=== PATIENT | female | born 1985 | race Caucasian/White ===

== ENCOUNTER 2016-11-14 22:03 | Inpatient (IN) | payer MEDICAID ==
[2016-11-14] MEDS ORDERED: LR 1,000 ML IV PRN (22:07)
[2016-11-14] MEDS ORDERED: TERBUTALINE SULFATE 1 MG/ML VIAL IV PRN (22:07)
[2016-11-14] MEDS ORDERED: BUPIVACAINE 0.25% 30 ML SDV MISC ONE (22:07)
[2016-11-14] MEDS ORDERED: OXYTOCIN/RINGERS LACTATE 1,000 ML IV PRN (22:07)
[2016-11-14] MEDS ORDERED: fentaNYL 2MCG/ML/BUP 0.1% RTU 100 ML EP ONE (22:07)
[2016-11-14] MEDS ORDERED: LIDOCAINE 1% 30 ML SDV SC PRN (22:07)
[2016-11-14] MEDS ORDERED: IBUPROFEN 600 MG TAB PO PRN (22:07)
[2016-11-14] MEDS ORDERED: fentaNYL 100 MCG/2 ML INJ MISC ONE (22:07)
[2016-11-14] MEDS ORDERED: MINERAL OIL 60 ML OIL TP PRN (22:07)
[2016-11-14 22:22] LABS: % IMMATURE GRANULYOCYTES 1.3 % (0.0-1.1); ABSOLUTE IMMATURE GRANULOCYTES 0.19 10^3/uL (0.00-0.10); ADD DIFF? NO; ADD MORPH? NO; ADD SCAN? NO; ATYPICAL LYMPHOCYTE FLAG 0 (0-99); FRAGMENT RBC FLAG 0 (0-99); HEMOGLOBIN 15.4 g/dL (12.6-16.3); LEFT SHIFT FLG 10 (0-99); LIPEMIA HEMOLYSIS FLAG 90 (0-99); MEAN CELL HEMOGLOBIN 33.2 pg (27.9-34.1); MEAN CELL HEMOGLOBIN CONCENTR. 35.8 g/dL (32.4-36.7); MEAN CELL VOLUME 92.7 fL (81.5-99.8); MEAN PLATELET VOLUME 8.8 fL (8.7-11.7); PLATELET CLUMPS FLAG 0 (0-99); PLATELET COUNT 209 10^3/uL (150-400); RED BLOOD CELL COUNT 4.64 10^6/uL (4.18-5.33); RED CELL DISTRIBUTION WIDTH 12.6 % (11.5-15.2)
[2016-11-14] MEDS ORDERED: BUPIVACAINE 0.25% 30 ML SDV ONE (22:28)
[2016-11-14] MEDS ORDERED: fentaNYL 2MCG/ML/BUP 0.1% RTU 100 ML BAG EP ONE (22:28)
[2016-11-14] MEDS ORDERED: PHENYLEPHRINE HCL 100 MCG/ML SYR ONE (22:29)
[2016-11-14] MEDS ORDERED: ONDANSETRON 4 MG/2 ML VIAL IVP PRN (23:04)
[2016-11-14] MEDS ORDERED: NALOXONE HCL 0.4 MG/ML INJ IVP PRN (23:04)
[2016-11-14] MEDS ORDERED: PHENYLEPHRINE HCL 100 MCG/ML SYR IVP PRN (23:04)
[2016-11-14] MEDS ORDERED: LR 500 ML IV SCH (23:30)
[2016-11-14] MEDS ORDERED: fentaNYL 2MCG/ML/BUP 0.1% RTU 100 ML EP SCH (23:30)
[2016-11-14] MEDS ORDERED: HYDROCORTISONE 0.5% CREAM TP PRN (23:35)
[2016-11-14] MEDS ORDERED: HYDROCODONE/APAP 5/325 TAB PO PRN (23:35)
[2016-11-14] MEDS ORDERED: ACETAMINOPHEN 325 MG TAB PO PRN (23:35)
--- NOTE | 2016-11-14 23:35 | OBPROC ---
- Labor and Delivery Onset of Contractions Date: 11/14/16 Onset of Contractions Time: 20:00 Onset of Contractions Type: Spontaneous Rupture of Membranes Date: 11/14/16 Rupture of Membranes Time: 22:00 Rupture of Membranes Type: Spontaneous Amniotic Fluid Color: Clear Dilation Complete Time: 22:55 Delivery Type: Spontaneous Placenta Delivery Date: 11/14/16 Placenta Delivery Time: 23:16 Episiotomy/Laceration: 2nd Degree Repair: 3-0 - Medications Labor Augmentation/Induction Meds Used: None Anesthesia: Epidural - [place] Info Infant A Delivery Date: 11/14/16 Delivery Time: 23:13 Sex of Infant: Female Score (1 Min): 8 Score (5 Min): 9
--- NOTE | 2016-11-15 00:29 | GHP ---
[f rep st] HISTORY AND PHYSICAL DATE OF ADMISSION: 11/14/2016 ADMISSION DIAGNOSES: 1. Intrauterine at 40-6/7 weeks' gestation. 2. Active labor. 3. Spontaneous rupture of membranes. The patient is a 31-year-old 4, para 1-0-2-1, who is 40-6/7 weeks' gestation who was seen in the office yesterday and was 3 cm dilated. Her membranes were stripped. She began having contractio ns, increasing in frequency and intensity, on the afternoon of 11/14/2016 and presented to labor and delivery. She was 6 cm dilated, and her water spontaneously broke upon arrival to labor and delivery . Patient has been receiving care. Patient's estimated due date is 11/09/2016 with a last menstrual period of 02/02/2016. She is dated by last menstrual period, consistent with an 8-week ult rasound, and she has received care with [facility]. The patient's has b een uncomplicated. PATIENT'S MEDICAL HISTORY: Unremarkable. MEDICATIONS: vitamins and DHEA. SURGICAL HISTORY: D and C. ALLERGIES: No known drug allergies. SOCIAL HISTORY: Patient is in a long-term relationship. She denies tobacco, alcohol, or drug use. FAMILY MEDICAL HISTORY: Noncontributory. 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 Periods every 28 days, lasting 4 days. She is a 4, par a 1-0-2-1. In 2003, she had a spontaneous and did not need a D and C. In 05/2013, she had a missed and had a D and C after failed Cytotec. In 2013, she had a vacuum-assisted vaginal delivery, done for intolerance of labor, at 40-6/7 weeks' gestation of a baby weighing 6 pound s 8 ounces. The patient denies any history of any other abnormal Pap smears or sexually transmitted diseases. PHYSICAL EXAM: VITAL SIGNS: Stable. GENERAL APPEARANCE: Alert and oriented x3. Her heart rate is regular/regular. LUNGS: Clear to auscultation bilaterally. ABDOMEN: Gravid, nondistended, nonten ryann. EXTREMITIES: No calf tenderness or edema. CERVICAL EXAM: She is 6 cm dilated, 100% effaced, and 0 station. Grossly ruptured. She is having regular contractions. heart tracings are lois gory 1. LABS: Blood type A positive, antibody screen negative, rubella immune. GBS negative. HBsA g negative. HIV negative. Her 50 g glucose was 104, and her verifi screen was negative. ASSESSMENT AND PLAN: 31-year-old, 4, para 1-0-2-1, at 40-6/7 weeks' gestation, who presented in active labor and spontaneously ruptured fluids upon my arrival to labor and delivery. The patien t was receiving an epidural now and will be managed expectantly. /[id number]/MODL
[2016-11-15] MEDS ORDERED: TERBUTALINE SULFATE 1 MG/ML VIAL IV ONE (02:00)
[2016-11-15] MEDS ORDERED: MINERAL OIL 60 ML OIL TP ONE (02:00)
[2016-11-15] MEDS ORDERED: OXYTOCIN 10 UNIT/ML VIAL IV ONE (02:00)
[2016-11-15] MEDS ORDERED: AMMONIA AROMATIC 1 EACH AMP IH ONE (02:00)
[2016-11-15] MEDS ORDERED: LIDOCAINE 1% 30 ML SDV SC ONE (02:00)
[2016-11-15] MEDS ORDERED: MISOPROSTOL 200 MCG TAB VG ONE (02:00)
[2016-11-15] MEDS: IBUPROFEN 600 MG TAB PO PRN ×4 (02:11→22:19)
[2016-11-15] MEDS: DOCUSATE SODIUM 100 MG CAP PO PRN ×2 (09:33→22:19)
--- NOTE | 2016-11-15 09:53 | SOAPPROG ---
SOAP Progress Note Assessment/Plan: Assessment: ppd# 1 s/p breast feeding Plan: routine post care 11/15/16 09:48 Subjective: patient is doing well. pain is well controlled. normal lochia. denies headache and change. ambulating. baby on bililight. no issues. Objective: Vital Signs Temp Pulse Resp BP Pulse Ox 36.4 C 76 16 100/53 L 94 11/15/16 08:30 11/15/16 08:30 11/15/16 08:30 11/15/16 08:30 11/15/16 08:30 Laboratory Results 11/14/16 22:10 Physical Exam - Physical Exam General Appearance: WD/WN, alert, no apparent distress Respiratory: chest non-tender, lungs clear, normal breath sounds Cardiac/Chest: normal peripheral pulses, regular rate, rhythm Abdomen: normal bowel sounds, non-tender, soft, other (fundus firm and non tender) Skin: normal color, warm/dry Extremities: normal range of motion, non-tender, normal inspection, normal capillary refill Neuro/Psych: no motor/sensory deficits, alert, normal mood/affect, oriented x 3 ICD10 Worksheet Patient Problems: Problems Problem Status Diagnosed (spontaneous vaginal delivery) Acute
[2016-11-15] MEDS ORDERED: EPSOM SALT 454 GM TP ONE (09:55)
[2016-11-16] MEDS: IBUPROFEN 600 MG TAB PO PRN (06:49)
[2016-11-16 08:54] VITALS: BP 103/66; PULSE 70; RESP 16; TEMP 97.9; O2SAT 93
[2016-11-16] MEDS: DOCUSATE SODIUM 100 MG CAP PO PRN (09:32)
--- NOTE | 2016-11-16 11:26 | SOAPPROG ---
SOAP Progress Note Assessment/Plan: Assessment: ppd# 2 s/p breast feeding Plan: routine post care discharge instructions and discharge patient mood precautions 11/16/16 11:24 Subjective: patient is doing well. pain is well controlled. normal lochia. denies headache and changes in vision. wants to go home. voiding without difficulty. Objective: Vital Signs Temp Pulse Resp BP Pulse Ox 36.6 C 70 16 103/66 93 11/16/16 08:15 11/16/16 08:15 11/16/16 08:15 11/16/16 08:15 11/16/16 08:15 Laboratory Results 11/14/16 22:10 Physical Exam - Physical Exam General Appearance: WD/WN, alert, no apparent distress Respiratory: chest non-tender, lungs clear, normal breath sounds Cardiac/Chest: normal peripheral pulses, regular rate, rhythm Abdomen: normal bowel sounds, non-tender, soft, other (fundus firm and non tender) Skin: normal color, warm/dry Extremities: normal range of motion, non-tender, normal inspection, normal capillary refill Neuro/Psych: no motor/sensory deficits, alert, normal mood/affect, oriented x 3 ICD10 Worksheet Patient Problems: Problems Problem Status Diagnosed (spontaneous vaginal delivery) Acute
== END 2016-11-16 12:30 | disposition home or self-care (01) | DRG 775 ==
LOC: FLD 22:03 → FOB 11-15 01:37
PROVIDERS: ADMIT Obstetrics & Gynecology; ATTEND Obstetrics & Gynecology
PROC: 0KQM0ZZ Repair Perineum Muscle, Open Approach (ICD-10-PCS; principal; 2016-11-14)
PROC: 10E0XZZ Delivery of Products of Conception, External Approach (ICD-10-PCS; principal; 2016-11-14)
DX: O70.1 Second degree perineal laceration during delivery (principal); Z37.0 Single live birth; Z3A.40 40 weeks gestation of pregnancy
CPT/HCPCS: J2370; J2590; J3010

== ENCOUNTER → 2017-03-25 | Outpatient (CLI) | payer MEDICAID | LOC: FIMAGING 16:03 | PROVIDERS: ATTEND Nurse Practitioner Women's Health | DX: Z97.5 Presence of (intrauterine) contraceptive device (principal) ==

== ENCOUNTER 2017-03-30 10:03 | Day surgery (SDC) | payer MEDICAID ==
--- NOTE | 2017-03-26 10:24 | GHP ---
[f rep st] HISTORY AND PHYSICAL DATE OF ADMISSION: 03/30/2017 ADMITTING DIAGNOSIS: Displaced IUD. HISTORY OF PRESENT ILLNESS: The patient is a 31-year-old, 4, para 2-0-2 -2, who presents to my office today for a surgical consult. She had Paragard IUD placed 01/29 and returned for IUD sting check yesterday. The IUD strings were not seen on exam. She had an ultrasound that showed IUD was not in the uterus and then had a KUB that demonstrated IUD in the pelvis, extrauterine position. Patient denies any cramping or vaginal bleeding. She is asymptomatic at this time. The patient is interested in the control pill. PAST OB HISTORY: In 2003, she had a spontaneous AB. In 2012, she had a missed AB, and required a D and C. In 2013, she had a a full-term, vacuum- assisted vaginal delivery, female weighing 6 pounds 8 ounces at 40 weeks and 6 days. In 2016, she had a full-term vaginal delivery, female weighing 7 pounds, 12 ounces, uncomplicated. 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 Cycles are every 28 days for 4 days. Patient is at this time. Last menstrual period was 02/02/2016. She is currently . Denies a history of abnormal Pap smears. Does have a history of high-risk HPV. Denies exposure to any other STDs. PAST MEDICAL HISTORY: Unremarkable. PAST SURGICAL HISTORY: D and C. MEDICATIONS: vitamins. ALLERGIES: No known drug allergies. SOCIAL HISTORY: Patient is with long-time partner, not . Lives with partner and their 2 daughters. Denies any alcohol, tobacco or illicit drug use. FAMILY HISTORY: Maternal great-grandmother, breast cancer. Paternal grandmother, colon cancer. STUDIES: Pelvic ultrasound revealed IUD not within the uterus. Flat plate KUB demonstrated the IUD in the upper third of pelvis; retroperitoneal fat planes are intact; no evidence to suggest free fluid. PHYSICAL EXAMINATION: VITAL SIGNS: On admission, vital signs are stable, afebrile. GENERAL: The patient is a well-nourished, well-developed female. Alert and oriented x3. No apparent distress. CARDIOVASCULAR: Regular rate and rhythm. LUNGS: Clear to auscultation bilaterally. Normal breath sounds. ABDOMEN: Soft, nondistended, nontender. PELVIC: On bimanual exam, normal adnexa and normal uterus. No IUD strings palpated. EXTREMITIES: Normal to inspection without calf tenderness or edema. ASSESSMENT: The patient is a 31-year-old, 4, para 2-0-2-2, with displaced IUD. PLAN: 1. Discussed proceeding with surgery to remove displaced IUD which could cause pain and is not effective control. She is interested in the pill for control. 2., Discussed surgery, diagnostic laparoscopy, its limitations, n.p.o., preop, and postop recovery. 2. Surgical consent was obtained. Risks, benefits and alternatives reviewed with the patient including but not limited to bleeding, infection, damage to surrounding organs. The patient does understand all risks at this time and wants to proceed with surgery. 3. Antibiotics manager regional to OR. 4. SCDs for DVT prophylaxis. 5. Surgery is scheduled for 03/30/2017 at 1345. /[id number]/MODL MTDD
[~2017-03-30 10:03] MED LIST: ceFAZolin 2 GM/DEXTROSE 100 ML IV ONE
[2017-03-30] MEDS ORDERED: SILVER NITRATE APPLICATOR 1 APPL TP ONE (10:10)
[2017-03-30] MEDS ORDERED: BUPIVACAINE 0.5% 30 ML SDV ONE (10:10)
[2017-03-30] MEDS ORDERED: LIDOCAINE 1% 5 ML SDV ID PRN (10:35)
[2017-03-30] MEDS ORDERED: LR 1,000 ML IV ONE (10:35)
[2017-03-30] MEDS ORDERED: CEFAZOLIN 2 GM/DEXTROSE/100 ML BAG IV ONE (11:18)
[2017-03-30] MEDS ORDERED: PROPOFOL 200 MG/20 ML VIAL ONE (11:28)
[2017-03-30] MEDS ORDERED: PROPOFOL/EMULSION 500 MG/50 ML BOTTLE IV ONE (11:28)
[2017-03-30] MEDS ORDERED: KETOROLAC 30 MG/1 ML SDV ONE ×2 (11:28)
[2017-03-30] MEDS ORDERED: fentaNYL 100 MCG/2 ML INJ ONE (11:28)
[2017-03-30] MEDS ORDERED: DEXAMETHASONE 4 MG/ML VIAL ONE (11:29)
[2017-03-30] MEDS ORDERED: ONDANSETRON 4 MG/2 ML VIAL ONE (11:29)
[2017-03-30] MEDS ORDERED: SUGAMMADEX SODIUM 200 MG/2 ML VIAL IVP ONE (12:26)
--- NOTE | 2017-03-31 06:55 | GOP ---
[f rep st] OPERATIVE REPORT DATE OF OPERATION: 03/30/2017 SURGEON: Roro Montaño DO ETHYLENE COMPRESSOR OPERATOR: None. ANESTHESIA: General endotracheal. PREOPERATIVE DIAGNOSIS: Displaced intrauterine device. POSTOPERATIVE DIAGNOSIS: Displaced intrauterine device. PROCEDURE PERFORMED: Diagnostic laparoscopy with removal of displaced intrauterine device. FINDINGS: On bimanual exam, normal-size uterus, normal adnexa. No IUD strings were palpated. SPECIMENS: None. ESTIMATED BLOOD LOSS: 5 cc. DESCRIPTION OF PROCEDURE: Patient was taken to the operating room where general anesthesia was obta ined without difficulty. The patient was placed in dorsal lithotomy position, prepped and draped in the usual sterile manner. Hopkins catheter was placed in her bladder at this time. Open side specul um was placed in the vagina. Anterior lip of the cervix was grasped with a single-tooth tenaculum. The uterus was sounded to 11 cm and dilated with Hegar dilators. Hulka clamp was advanced to the u terus to use as a means to manipulate the uterus. We then turned our attention to the patient's abd omen. Infraumbilical area was injected with 0.5% plain Marcaine. A 5 mm infraumbilical skin incisi on was made with the knife. Veress needle was inserted. Very carefully while tenting the abdominal wall, aspiration was negative. The abdomen was insufflated with carbon dioxide and pneumoperitoneu m was obtained. After adequate insufflation, the Veress needle was removed. A 5 mm trocar was then introduced through the infraumbilical incision into the abdominal cavity directly with the laparosc ope. The patient was placed in Trendelenburg position. There was adequate visualization of the pel katie structures at this time. After injection of more local, another 5 mm skin incision was made in the left lower quadrant and another 5 mm skin incision was made in the right lower quadrant. Atraum atic trocars were then placed. Pelvic findings were noted as above. At this time, one of the arms of the ParaGard IUD was sticking out and was grasped with a grasper and then was tugged on gently un til the IUD was removed from the omentum and then removed through the 5 mm port, intact. We visuali zed the area of the omentum where the IUD was noted. There was no bleeding. Hemostasis was noted. Abdomen and pelvis were then copiously irrigated with normal saline. Again hemostasis was noted. All instruments were then removed from the abdomen. Air was allowed to escape from the abdomen. Th e skin incisions of the 5 mm ports were then closed with 3-0 Vicryl, then covered with Steri-Strips and Band-Aids. Patient tolerated procedure well. No complications. Sponge, lap and needle count c orrect x2. Patient was then taken out of dorsal lithotomy position, awakened, and taken to recovery room in stable condition. COMPLICATIONS: None. IV FLUIDS: 500 cc LR. URINE OUTPUT: 35 cc of clear urine at the end of the procedure. FINDINGS: Grossly normal-appearing uterus, tubes, bilateral ovaries. IUD was not seen in the pelvi s or in the posterior cul-de-sac. IUD was noted embedded in the omentum with strings visible. Uppe r abdomen was grossly normal appearing. /[id number]/MODL
== END 2017-03-30 14:17 | disposition home or self-care (01) ==
LOC: FSGY 10:03
PROVIDERS: ATTEND Obstetrics & Gynecology
PROC: 0UPD4HZ Removal of Contraceptive Device from Uterus and Cervix, Percutaneous Endoscopic Approach (ICD-10-PCS; principal; 2017-03-30 11:30)
DX: T83.32XA Displacement of intrauterine contraceptive device, initial encounter (principal)
CPT/HCPCS: J0690; J1100; J1885; J2405; J2704; J3010

== ENCOUNTER → 2018-06-08 | Outpatient (CLI) | payer MEDICAID | LOC: FIMAGING 12:36 | PROVIDERS: ATTEND Obstetrics & Gynecology | DX: N63.11 Unspecified lump in the right breast, upper outer quadrant (principal); N64.4 Mastodynia ==